=== PATIENT | male | born 1990 | race Caucasian/White ===

== ENCOUNTER 2023-05-12 09:40 | Emergency (ER) | payer OTHER, SELFPAY ==
[2023-05-12 09:54] VITALS: BP 130/73; PULSE 107; RESP 16; TEMP 36.6; O2SAT 99
--- NOTE | 2023-05-12 10:16 | ED.GENADULT ---
HPI - General Adult General Chief complaint: Anxiety Stated complaint: Anxiety Time Seen by Provider: 05/12/23 10:16 Source: patient Mode of arrival: ambulatory Limitations: no limitations History of Present Illness HPI narrative: 32 y/o male presented for c/o anxiety. He reports concern about irritation to skin of penis, after he has had increase in masturbation recently since became . States he thinks he has 'friction burn' to the skin, denies any bumps/lesions, drainage or urinary complaints. Denies concern for STD. Applied Aquaphor to the site. He states he has been obsessively concerned about this skin irritation even though he knows what it is. States he has had increase in panic attacks over the past year. No meds for anxiety. Also states he tends to get mouth cold sore when he has panic attacks and would like med for cold sore. Related Data Allergies Allergy/AdvReac Type Severity Reaction Status Date / Time No Known Allergies Allergy Verified 05/12/23 09:50 Review of Systems Review of Systems: CONSTITUTIONAL: Denies body aches, fever, chills, or sweats. EYES: Denies visual changes, redness, or discharge. ENT: Denies rhinorrhea, congestion, sore throat, or otalgia. CARDIOVASCULAR: Denies chest pain, palpitations, or edema. RESPIRATORY: Denies cough or dyspnea. GASTROINTESTINAL: Denies abdominal pain, nausea, vomiting, or diarrhea. GENITOURINARY: Denies dysuria or hematuria. SKIN: Denies rash or itching MUSCULOSKELETAL: Denies back pain, joint pain, or myalgia. NEUROLOGIC: Denies headache, numbness, tingling, or weakness. PSYCH: Reports anxiety. All systems reviewed & are unremarkable except as noted in HPI and below [facility] Past Medical History Medical History (Updated 05/12/23 @ 11:44 by Inez Cuenca APRN) No pertinent past medical history Social History Social History Smoking status: Never smoker Lack of Transportation: No Lack of Food: Never True Current Housing: I Have Housing Concerned About Future Housing: No Difficulty Paying Gas/Electric Bills: No Difficulty Paying for Meds: No Currently Unemployed: No Education: Associate Degree Difficulty w/ Childcare or Family Care: No Comments At time of signature, I have reviewed and agree with nursing past medical, surgical, social and family history unless otherwise noted. Please see nursing chart for further information. There is no relevant family history pertinent to the presenting complaint Exam Narrative: GENERAL: Well-appearing EYES: EOMI. No redness or drainage. Conjunctivae normal. ENT: Mucous membranes pink and moist. No rhinorrhea. TMs normal bilaterally. Throat normal. Uvula midline. NECK: Normal AROM. CHEST: Clear to auscultation. HEART: Regular rate and rhythm. No murmur appreciated. Normal peripheral pulses. ABDOMEN: Soft, nontender, nondistended, normal active bowel sounds. : skin to penis shaft normal in color without erythema, lesions, bumps, rash drainage EXTREMITIES: Normal range of motion. No edema. SKIN: Warm, dry, no rash. Capillary refill normal. Normal skin turgor. NEURO: No focal deficits. Alert and oriented x3. PSYCH: Mild anxiety. Affect and interaction appropriate. Course Course Emergency Course: Patient is aware of diagnosis, understands and agrees to treatment plan. Anticipatory guidance given. Patient agrees to follow-up as directed and is aware of reasons to seek care at the emergency department. Portions of this record may have been created with voice recognition software Level of Care: Express Care Visit Vital Signs Vital signs: Vital Signs Temperature 98 F 05/12/23 09:54 Pulse Rate 107 H 05/12/23 09:54 Respiratory Rate 16 05/12/23 09:54 Blood Pressure 130/73 05/12/23 09:54 Pulse Oximetry 99 05/12/23 09:54 Temperature 98 F 05/12/23 09:54 Pulse Rate 107 H 05/12/23 09:54 Resp
== END 2023-05-12 10:37 | disposition home or self-care (01) ==
PROVIDERS: Emergency Provider Nurse Practitioner Family; PCP Internal Medicine
DX: F41.9 Anxiety disorder, unspecified (principal)
CPT/HCPCS: 99213; G0463

== ENCOUNTER 2023-05-31 17:11 | Emergency (ER) | payer OTHER, SELFPAY ==
[2023-05-31 17:19] VITALS: BP 128/76; PULSE 81; RESP 16; TEMP 36.6; O2SAT 100
--- NOTE | 2023-05-31 17:19 | ED.MALEGU ---
HPI - Male Genitourinary General Chief complaint: Skin/Abscess/Foreign Body Stated complaint: RASH IN GROIN AREA Time Seen by Provider: 05/31/23 17:19 Source: patient Mode of arrival: ambulatory Limitations: no limitations History of Present Illness HPI Narrative: 32 yo M presents with c/o redness and itching to penis. States he was seen here with same complaint about 3 wks ago and at that time he had one small area of redness that he thought was from friction from masturbating. Since then has been applying aquaphor and neosorin, stopped masturbating and redness and itching worse. Denies pain. No urinary symptoms. All systems reviewed and negative except as noted above. Related Data Allergies Allergy/AdvReac Type Severity Reaction Status Date / Time No Known Allergies Allergy Verified 05/31/23 17:26 Review of Systems Review of Systems: CONSTITUTIONAL: Denies fever, chills, or sweats. EYES: Denies visual changes, redness, or discharge. ENT: Denies rhinorrhea, congestion, sore throat, or otalgia. CARDIOVASCULAR: Denies chest pain, palpitations, or edema. RESPIRATORY: Denies cough or dyspnea. GASTROINTESTINAL: Denies abdominal pain, nausea, vomiting, or diarrhea. GENITOURINARY: Denies dysuria or hematuria. SKIN: Denies rash or itching. Reports redness and itching to penis MUSCULOSKELETAL: Denies back pain, joint pain, or myalgia. NEUROLOGIC: Denies headache, numbness, or weakness. PSYCHIATRIC: Denies anxiety or depression. All other systems reviewed are negative, except as documented in HPI. [facility] [place] Past Medical History Medical History (Updated 05/31/23 @ 17:31 by Melania Sahni NP) No pertinent past medical history Social History Social History Smoking status: Never smoker Lack of Transportation: No Lack of Food: Never True Current Housing: I Have Housing Concerned About Future Housing: No Difficulty Paying Gas/Electric Bills: No Difficulty Paying for Meds: No Currently Unemployed: No Education: Associate Degree Difficulty w/ Childcare or Family Care: No Comments At time of signature, agree with nursing past medical, surgical, social and family history. There is no relevant family history pertinent to the presenting complaint. Exam Narrative: GENERAL: This is a well-nourished, well-developed patient, in no apparent distress. HEAD: normocephalic, atraumatic. EYES: PERRL. Sclera clear/white. Vision is grossly intact. EARS: External ears normal NOSE: External nose normal NECK: Neck supple, non-tender without lymphadenopathy, masses or thyromegaly. CARDIOVASCULAR: Regular rate and rhythm without murmurs, gallops, or rubs. RESPIRATORY: Clear to auscultation. Breath sounds equal bilaterally. No wheezes, rales, or rhonchi. genitourinary: very mild erythema to glans of penis and garcia with no significant swelling. no drainage or open sores. no lesions/vesicles concerning for STI SKIN: warm, Dry, intact with no suspicious lesions or rash, good texture and turgor. NEURO: awake, alert, and oriented to person, place and time. There were no obvious focal neurologic abnormalities. EXTREMITIES: No joint tenderness, effusion, or edema noted. Course Course Level of Care: Express Care Visit Vital Signs Vital signs: Vital Signs Temperature 36.6 C 05/31/23 17:19 Pulse Rate 81 05/31/23 17:19 Respiratory Rate 16 05/31/23 17:19 Blood Pressure 128/76 05/31/23 17:19 Pulse Oximetry 100 05/31/23 17:19 Temperature 36.6 C 05/31/23 17:19 Pulse Rate 81 05/31/23 17:19 Respiratory Rate 16 05/31/23 17:19 Blood Pressure 128/76 05/31/23 17:19 Pulse Oximetry 100 05/31/23 17:19 Oxygen Delivery Room Air 05/31/23 17:21 Review MDM - Male Genitourinary MDM Narrative Medical decision making narrative: Patient is aware of diagnosis, understands and agrees to treatment plan. Anticipatory guidance given. Pat
== END 2023-05-31 17:36 | disposition home or self-care (01) ==
PROVIDERS: Emergency Provider Nurse Practitioner Family; PCP Internal Medicine
DX: N48.1 Balanitis (principal)
CPT/HCPCS: 99213; G0463

== ENCOUNTER 2023-06-05 11:24 | Outpatient (CLI) | payer OTHER, SELFPAY ==
[2023-06-05 18:58] LABS: Appearance Urine Clear (Clear); Bilirubin Urine Negative (Negative); Blood Urine Negative (Negative); Color Urine Dark Yellow (Yellow); Glucose Urine UA Negative (Negative); Ketones Urine 1+ mg/dL (Negative); Leukocyte Esterase Ur Negative LEU/UL (NEGATIVE); Nitrate Urine Negative (Negative); Protein Urine Negative (Negative); Specific Grav Ur 1.024 (1.001-1.035); pH Urine 6.5 (5.0-9.0)
[2023-06-05 19:01] LABS: Add Urine Microscopic? NO
== END 2023-06-05 11:25 | disposition home or self-care (01) ==
LOC: ANHGOSHLAB 11:26
PROVIDERS: PCP Internal Medicine; Visit Provider Internal Medicine
DX: R30.0 Dysuria (principal)
CPT/HCPCS: 81003